=== PATIENT | female | born 1980 | race Caucasian/White ===

== ENCOUNTER 2018-01-22 12:26 | Inpatient (IN) ==
[2018-01-22 13:00] LABS: Bilirubin,Urine Negative (Negative); Blood,Urine Trace (Negative); Clarity,Urine Turbid (Clear); Color,Urine Yellow (Yellow); Glucose,Urine (UA) Normal (Normal); Ketones,Urine Negative (Negative); Leukocyte Esterase,Urine Moderate (Negative); Nitrite,Urine Negative (Negative); PH,Urine 6.5 pH Units (5.0-8.0); Protein,Urine 30 mg/dL (Neg-Trace); Specific Gravity,Urine 1.021 (1.010-1.025); Urobilinogen,Urine Normal (Normal)
--- NOTE | 2018-01-22 13:05 | Emergency Department Note ---
Disposition Clinical Impression: Hypokalemia, Hyponatremia, DIAZ (acute kidney injury) Disposition: Admitted As Inpatient Condition: Fair General Adult HPI - General Chief complaint: ED General Medical Stated complaint: It's my Kidneys? Time Seen by Provider: 01/22/18 12:59 - History of Present Illness Pain Scale: 0 - Related Data Home Medications Medication Instructions Recorded Confirmed Mv,Fe,Min/Lutein [A Thru Z Select 1 tab PO DAILY 01/22/18 01/22/18 Women's Tablet] Potassium Chloride [K-Tab ER] 20 meq PO DAILY 01/22/18 01/22/18 Sertraline [Zoloft] 50 mg PO DAILY 01/22/18 01/22/18 hydrOXYzine HCl [Hydroxyzine HCl] 25 - 50 mg PO HS 01/22/18 01/22/18 hydroCHLOROthiazide 25 mg PO DAILY 01/22/18 01/22/18 [Hydrochlorothiazide] Previous Rx's Medication Instructions Recorded RX: Metoprolol [Lopressor] 25 mg PO BID #60 tablet 06/14/15 RX: Cholecalciferol (D-3) [Vitamin 5,000 unit PO DAILY tablet 08/05/15 D] RX: OXcarbazepine [Trileptal] 600 mg PO BID tablet 08/05/15 RX: Zonisamide [Zonegran] 100 mg PO BID capsule 08/05/15 Allergies Allergy/AdvReac Type Severity Reaction Status Date / Time No Known Allergies Allergy Verified 01/22/18 12:44 Past Medical History - Past Medical History Medical history: Reports: hypertension, seizures, other Surgical history: Reports: other Psychiatric history: Reports: anxiety, depression, previous psychiatric hospitalization - Social History Smoking Status: Current every day smoker Smokeless Tobacco Status: No Alcohol use: Reports: none Drug use: Reports: none Course Vital Signs Temperature 97.8 F 01/22/18 12:41 Pulse Rate 84 01/22/18 12:41 Respiratory Rate 16 01/22/18 12:41 Blood Pressure 153/114 01/22/18 12:41 O2 Sat by Pulse Oximetry 97 01/22/18 12:41 Temperature 97.8 F 01/22/18 13:03 Pulse Rate 70 01/22/18 16:57 Respiratory Rate 16 01/22/18 16:57 Blood Pressure 137/101 01/22/18 16:57 O2 Sat by Pulse Oximetry 97 10/27/18 16:57 Oxygen Delivery Oxygen Delivery Room Air Medical Decision Making - Lab Data Result diagrams: 01/22/18 13:20 01/22/18 13:20 Lab Results 01/22/18 01/22/18 01/22/18 Range/Units 12:37 12:37 13:20 WBC 9.7 (4.3-11.1) K/mcL RBC 4.96 (3.82-4.97) M/mcL Hgb 16.0 H (11.5-15.4) g/dL Hct 42.0 (35.3-44.9) % MCV 84.7 (83.0-100.0) fL MCH 32.3 (28.0-33.3) pg MCHC 38.1 H (31.6-35.5) g/dL RDW 11.6 (11.5-14.5) % Plt Count 283 (140-400) K/mcL MPV 10.3 (9.4-12.4) fL Immature Gran % 0.5 (0-4) % Seg Neutrophils % 66.4 % Lymphocytes % 19.5 % Monocytes % 11.8 % Eosinophils % 1.3 % Basophils % 0.5 % Neutrophils # 6.4 (1.6-8.9) K/mcL Lymphocytes # 1.9 (0.6-4.6) K/mcL Monocytes # 1.1 (0.0-1.3) K/mcL Eosinophils # 0.1 (0.0-0.6) K/mcL Basophils # 0.1 (0.0-0.2) K/mcL Sodium (136-145) mEq/L Potassium (3.5-5.1) mEq/L Chloride (98-107) mEq/L Carbon Dioxide (23-29) mEq/L BUN (6-20) mg/dL Creatinine (0.60-1.20) mg/dL Est GFR ( Amer) (> 60) Est GFR (Non-Af Amer) (> 60) BUN/Creatinine Ratio (6-26) Glucose (70-105) mg/dL Calculated Osmolality (280-300) Calcium (8.6-10.3) mg/dL Magnesium (1.6-2.6) mg/dL Total Bilirubin (0.3-1.0) mg/dL Direct Bilirubin (0.0-0.2) mg/dL Indirect Bilirubin (0.0-1.2) mg/dL AST (13-39) Units/L ALT (7-52) Units/L Alkaline Phosphatase (34-104) Units/L Serum Total Protein (6.4-8.9) g/dL Albumin (3.5-5.7) g/dL Globulin (2.4-3.5) g/dL Albumin/Globulin Ratio (1.1-2.2) TSH (0.340-5.600) mcIU/mL Urine Color Yellow (Yellow) Urine Clarity Turbid A (Clear) Urine pH 6.5 (5.0-8.0) pH Units Ur Specific [place] 1.021 (1.010-1.025) Urine Protein 30 H (Neg-Trace) mg/dL Urine Glucose (UA) Normal (Normal) mg/dL Urine Ketones Negative (Negative) mg/dL Urine Blood Trace H (Negative) Urine Nitrite Negative (Negative) Urine Bilirubin Negative (Negative) Urine Urobilinogen Normal (Normal) mg/dL Ur Leukocyte Esterase Moderate H (Negative) Urine Microscopic RBC 0-3 (0-3) per hpf Urine Microscopic WBC 0-3 (0-3) per hpf Ur Squamous Epith Cells Many H (None-Few) per lpf Urine Bacteria Moderate H (None-Few) per hpf Ur Culture Indicated? NO. A (NO) Urine Test Negative (Negative) Specimen Rejected 01/22/18 01/22/18 01/22/18 Range/Units 13:20 14:39 15:02 WBC (4.3-11.1) K/mcL RBC (3.82-4.97) M/mcL Hgb (11.5-15.4) g/dL Hct (35.3-44.9) % MCV (83.0-100.0) fL MCH (28.0-33.3) pg MCHC (31.6-35.5) g/dL RDW (11.5-14.5) % Plt Count (140-400) K/mcL MPV (9.4-12.4) fL Immature Gran % (0-4) % Seg Neutrophils % % Lymphocytes % % Monocytes % % Eosinophils % % Basophils % % Neutrophils # (1.6-8.9) K/mcL Lymphocytes # (0.6-4.6) K/mcL Monocytes # (0.0-1.3) K/mcL Eosinophils # (0.0-0.6) K/mcL Basophils # (0.0-0.2) K/mcL Sodium 123 L (136-145) mEq/L Potassium 1.8 L* (3.5-5.1) mEq/L Chloride 80 L (98-107) mEq/L Carbon Dioxide 32 H (23-29) mEq/L BUN 37 H (6-20) mg/dL Creatinine 2.62 H (0.60-1.20) mg/dL Est GFR ( Amer) 25 L (> 60) Est GFR (Non-Af Amer) 21 L (> 60) BUN/Creatinine Ratio 14 (6-26) Glucose 120 H (70-105) mg/dL Calculated Osmolality 266 L (280-300) Calcium 9.6 (8.6-10.3) mg/dL Magnesium 2.6 (1.6-2.6) mg/dL Total Bilirubin 0.5 (0.3-1.0) mg/dL Direct Bilirubin 0.1 (0.0-0.2) mg/dL Indirect Bilirubin 0.4 (0.0-1.2) mg/dL AST 31 (13-39) Units/L ALT 17 (7-52) Units/L Alkaline Phosphatase 179 H (34-104) Units/L Serum Total Protein 8.2 (6.4-8.9) g/dL Albumin 4.4 (3.5-5.7) g/dL Globulin 3.8 H (2.4-3.5) g/dL Albumin/Globulin Ratio 1.2 (1.1-2.2) TSH 1.379 (0.340-5.600) mcIU/mL Urine Color (Yellow) Urine Clarity (Clear) Urine pH (5.0-8.0) pH Units Ur Specific [place] (1.010-1.025) Urine Protein (Neg-Trace) mg/dL Urine Glucose (UA) (Normal) mg/dL Urine Ketones (Negative) mg/dL Urine Blood (Negative) Urine Nitrite (Negative) Urine Bilirubin (Negative) Urine Urobilinogen (Normal) mg/dL Ur Leukocyte Esterase (Negative) Urine Microscopic RBC (0-3) per hpf Urine Microscopic WBC (0-3) per hpf Ur Squamous Epith Cells (None-Few) per lpf Urine Bacteria (None-Few) per hpf Ur Culture Indicated? (NO) Urine Test (Negative) Specimen Rejected Hemolyzed Critical Care Time Critical Care Time: Yes Total Critical Care Time: 30 Attestation: The high probability of a clinically significant, sudden or life threatening deterioration of the [] system(s) required my full and direct attention, intervention and personal management. The aggregate critical care time was [] minutes. This time is in addition to time spent performing reported procedures but includes the following: [] Data Review and interpretation [] Patient assessment and monitoring of vital signs [] Documentation [] Medication orders and management Attestation Statement - Attestation Attestation: I examined this patient and my medical decision-making was reviewed with the Resident Physician. I agree with the documented findings, disposition and treatment plan as described except to the extent set forth below. [id number] time provided Patient arrives after having outpatient labs that showed a creatinine greater than 3 with a GFR of 18. These laboratory findings are new. I did review the outpatient laboratory values. She has recently Bactrim. Patient appears in no acute distress
--- NOTE | 2018-01-22 13:13 | Emergency Department Note ---
Disposition Clinical Impression: Hypokalemia, Hyponatremia, DIAZ (acute kidney injury) Disposition: Admitted As Inpatient Condition: Fair Referrals: NONE,PCP [Primary Care Provider] - Forms: ED Satisfaction Letter, Work/School Release Time of Disposition: 15:19 General Adult HPI - General Chief complaint: ED General Medical Stated complaint: It's my Kidneys? Time Seen by Provider: 01/22/18 12:59 Source: patient, family Limitations: no limitations Nursing Notes Reviewed: Yes Vital Signs Reviewed: Yes - History of Present Illness HPI Narrative: Patient is a 37-year-old female that presents emergency department for worsening of her renal function. Family and patient states that over the past few weeks her renal function is significantly been decreasing and now she has a GFR of 18. Family states that she has recently completed a course of Lasix due to swelling in her legs and this been taking Bactrim for cellulitis. Denies any previous kidney issues. Patient states that she is still making urine. Family states that she has not been eating or drinking well lately and has lost approximately 20 pounds over the past 2 weeks. Patient also reports that she has felt somewhat dizzy over this time. As well. Pain Scale: 0 - Related Data Home Medications Medication Instructions Recorded Confirmed Mv,Fe,Min/Lutein [A Thru Z Select 1 tab PO DAILY 01/22/18 01/22/18 Women's Tablet] Potassium Chloride [K-Tab ER] 20 meq PO DAILY 01/22/18 01/22/18 Sertraline [Zoloft] 50 mg PO DAILY 01/22/18 01/22/18 hydrOXYzine HCl [Hydroxyzine HCl] 25 - 50 mg PO HS 01/22/18 01/22/18 hydroCHLOROthiazide 25 mg PO DAILY 01/22/18 01/22/18 [Hydrochlorothiazide] Previous Rx's Medication Instructions Recorded Metoprolol [Lopressor] 25 mg PO BID #60 tablet 06/14/15 Cholecalciferol (D-3) [Vitamin D] 5,000 unit PO DAILY tablet 08/05/15 OXcarbazepine [Trileptal] 600 mg PO BID tablet 08/05/15 Zonisamide [Zonegran] 100 mg PO BID capsule 08/05/15 Allergies Allergy/AdvReac Type Severity Reaction Status Date / Time No Known Allergies Allergy Verified 01/22/18 12:44 All systems ED: reviewed and negative except as stated. Constitutional: Denies: fever Cardiovascular: Denies: chest pain Respiratory: Reports: dyspnea Gastrointestinal: Reports: abdominal pain Genitourinary: Denies: urgency, dysuria, frequency, hematuria Past Medical History - Past Medical History Medical history: Reports: hypertension, seizures, other Surgical history: Reports: other Psychiatric history: Reports: anxiety, depression, previous psychiatric hospitalization - Social History Smoking Status: Current every day smoker Smokeless Tobacco Status: No Alcohol use: Reports: none Drug use: Reports: none Physical Exam - General Limitations: no limitations General appearance: alert, in no apparent distress - Head Head exam: atraumatic, normocephalic - Eye Eye exam: Present: normal appearance, EOMI - Neck Neck exam: Present: normal inspection, full ROM, trachea midline - Respiratory Respiratory exam: Present: normal lung sounds bilaterally. Absent: respiratory distress, wheezes - Cardiovascular Cardiovascular exam: Present: regular rate, normal rhythm, normal heart sounds, +S1, +S2 - Abdominal Exam Abdominal exam: Present: soft, tenderness, normal bowel sounds Abdominal tenderness: Present: diffuse, mild - Neurological Exam Neurological exam: Present: alert, oriented X3 - Psychiatric Psychiatric exam: Present: normal affect, normal mood - Skin Skin exam: Present: warm, dry, intact Course Vital Signs Temperature 97.8 F 01/22/18 12:41 Pulse Rate 84 01/22/18 12:41 Respiratory Rate 16 01/22/18 12:41 Blood Pressure 153/114 01/22/18 12:41 O2 Sat by Pulse Oximetry 97 01/22/18 12:41 Temperature 97.8 F 01/22/18 13:03 Pulse Rate 75 01/22/18 13:03 Respiratory Rate 16 01/22/18 13:03 Blood Pressure 172/117 01/22/18 13:03 O2 Sat by Pulse Oximetry 97 01/22/18 13:03 Oxygen Delivery Oxygen Delivery Room Air Medical Decision Making - [facility] Narrative Medical decision making narrative: Due the patient presents emergency department with concern for kidney function and possible left-sided abdomen was without basic laboratory testing EKG. Patient's potassium was critically low at 1.8. Patient was given 40 of IV p otassium in addition to oral potassium. Patient's sodium was 123. Patient did have decreased kidney function with a creatinine of 2.6 and a GFR of 21. This is mildly improved from her outpatient laboratory testing that they brought with. Patient will need to be admitted to the hospital for further evaluation and management of her left side abnormalities and her decreasing kidney function. Nephrology was consult at and a consult was placed in [facility]. They will see her in consult. The patient will be admitted to the medical service. Patient will likely need admission to the 2 N. stepdown unit. We spoke with and she is accepted the patient to their service. Patient be admitted to the hospital this time for further evaluation and management. - Medical Records Medical records reviewed: Yes I reviewed the patient's medical records. - Lab Data Lab results reviewed: Yes I reviewed the patient's lab results. Result diagrams: 01/22/18 13:20 Lab Results 01/22/18 01/22/18 01/22/18 Range/Units 12:37 12:37 13:20 Sodium 123 L (136-145) mEq/L Potassium 1.8 L* (3.5-5.1) mEq/L Chloride 80 L (98-107) mEq/L Carbon Dioxide 32 H (23-29) mEq/L BUN 37 H (6-20) mg/dL Creatinine 2.62 H (0.60-1.20) mg/dL Est GFR ( Amer) 25 L (> 60) Est GFR (Non-Af Amer) 21 L (> 60) BUN/Creatinine Ratio 14 (6-26) Glucose 120 H (70-105) mg/dL Calculated Osmolality 266 L (280-300) Calcium 9.6 (8.6-10.3) mg/dL Magnesium 2.6 (1.6-2.6) mg/dL Total Bilirubin 0.5 (0.3-1.0) mg/dL Direct Bilirubin 0.1 (0.0-0.2) mg/dL Indirect Bilirubin 0.4 (0.0-1.2) mg/dL AST 31 (13-39) Units/L ALT 17 (7-52) Units/L Alkaline Phosphatase 179 H (34-104) Units/L Serum Total Protein 8.2 (6.4-8.9) g/dL Albumin 4.4 (3.5-5.7) g/dL Globulin 3.8 H (2.4-3.5) g/dL Albumin/Globulin Ratio 1.2 (1.1-2.2) Urine Color Yellow (Yellow) Urine Clarity Turbid A (Clear) Urine pH 6.5 (5.0-8.0) pH Units Ur Specific [place] 1.021 (1.010-1.025) Urine Protein 30 H (Neg-Trace) mg/dL Urine Glucose (UA) Normal (Normal) mg/dL Urine Ketones Negative (Negative) mg/dL Urine Blood Trace H (Negative) Urine Nitrite Negative (Negative) Urine Bilirubin Negative (Negative) Urine Urobilinogen Normal (Normal) mg/dL Ur Leukocyte Esterase Moderate H (Negative) Urine Microscopic RBC 0-3 (0-3) per hpf Urine Microscopic WBC 0-3 (0-3) per hpf Ur Squamous Epith Cells Many H (None-Few) per lpf Urine Bacteria Moderate H (None-Few) per hpf Ur Culture Indicated? NO. A (NO) Urine Test Negative (Negative) - EKG Data EKG #1 EKG attestation: Yes I reviewed and interpreted this EKG. EKG results narrative: EKG shows a sinus rhythm at a rate of 74 bpm, IN interval of 160, curious duration of 161, QTC of 514 with a normal axis. No evidence of STEMI but there are depressions in inferior lateral leads. There is no previous EKG for comparison.
[2018-01-22 13:20] LABS: Bacteria,Urine Moderate per hpf (None-Few); RBC,Urine 0-3 per hpf (0-3); Squamous Epithelial Cell,Urine Many per lpf (None-Few); WBC,Urine 0-3 per hpf (0-3)
[2018-01-22] MEDS ORDERED: Potassium Chloride Elixir 20 MEQ/15 ML UDC PO ONE ×2 (13:30→14:26)
[2018-01-22 13:50] LABS: Red Cell Distribution Width 11.6 % (11.5-14.5)
[2018-01-22 14:15] LABS: Albumin 4.4 g/dL (3.5-5.7); Albumin/Globulin Ratio 1.2 (1.1-2.2); Bilirubin,Direct 0.1 mg/dL (0.0-0.2); Bilirubin,Indirect 0.4 mg/dL (0.0-1.2); Bilirubin,Total 0.5 mg/dL (0.3-1.0); Calcium 9.6 mg/dL (8.6-10.3); Globulin 3.8 g/dL (2.4-3.5); Magnesium 2.6 mg/dL (1.6-2.6); Potassium 1.8 mEq/L (3.5-5.1); Total Protein 8.2 g/dL (6.4-8.9)
[2018-01-22] MEDS ORDERED: Naloxone 0.4 MG/ML INJ IVP PRN (14:34)
[2018-01-22] MEDS ORDERED: *HR* HYDROcodone/Acet 5/325 mg TABLET PO PRN (14:34)
[2018-01-22] MEDS ORDERED: *HR* OxyCODONE Immed Rel 5 MG TABLET PO PRN (14:34)
[2018-01-22] MEDS ORDERED: *HR* Labetalol 100 MG/20 ML MDV IVP PRN (14:45)
[2018-01-22 14:47] LABS: Basophils % 0.5 %; Immature Granulocytes % 0.5 % (0-4)
[2018-01-22 14:48] LABS: Basophils # 0.1 K/mcL (0.0-0.2); Eosinophils # 0.1 K/mcL (0.0-0.6); Eosinophils % 1.3 %; Lymphocytes # 1.9 K/mcL (0.6-4.6); Lymphocytes % 19.5 %; Mean Corpuscular Hemoglobin 32.3 pg (28.0-33.3); Mean Corpuscular Volume 84.7 fL (83.0-100.0); Mean Platelet Volume 10.3 fL (9.4-12.4); Monocytes # 1.1 K/mcL (0.0-1.3); Monocytes % 11.8 %; Neutrophils # 6.4 K/mcL (1.6-8.9); Platelet Count 283 K/mcL (140-400); Red Blood Count 4.96 M/mcL (3.82-4.97); Segmented Neutrophils % 66.4 %
[2018-01-22 15:14] LABS: Mean Corpuscular HGB Conc 38.1 g/dL (31.6-35.5)
[2018-01-22] MEDS ORDERED: Ipratropium/Albuterol Neb 3 ML IH PRN (15:33)
[2018-01-22] MEDS: 0.9 % Sodium Chloride w KCl 40 MEQ/1,000 ML MLS IVC SCH (15:39)
--- NOTE | 2018-01-22 15:45 | Internal Med History&Physical ---
Date of Encounter: 01/22/18 Time of Encounter: 15:10 Internal Medicine - H&P: HPI Chief complaint: dehydrated Admitted From: Home History of present illness: Ms. White is a 37 year old female with history of cerebral palsy with left- sided weakness/contracture, epilepsy, depression, hypertension, presented to the ED with due to worsening kidney function. Patient states that her renal function has steadily been declining for the last 2-3 weeks with the latest GFR around 18. Pt had been on lasix for the last few weeks for LE swelling and was also taking PO Bactrim for 3-4 days for presumed UTI. She was also taking another antibiotics about a month ago when she was diagnosed with LE cellulitis at the outside facility. In addition, she is on HCTZ for HTN and takes Zoloft, Trileptal for depression and epilepsy respectively. States that she had similar episode in 05/2017 when her Cr was noted to be around 1.3 -> subsequently improved to normal value. Family states that her appetite has been poor lately and was not eating or drinking much. No family history of kidney disease of kidney stones. Other than chronic cough that she has had as she smokes a pack da day for several years, patient denies chest pain, shortness of breath, sputum production, hemoptysis, or fever/chills. No GI/ symptoms. In the ED, she was afebrile and hemodynamically stable. Labwork again demonstrated Cr elevation of 2.62 with potassium 1.8 and Na 123. Cl was also low at 80. Mag normal. UA showed moderate LE but also contained many squamous epithelial cells. EKG showed ST depression in inferolateral leads as well as what appears to be U waves in V3-5. Patient was given 120meq of Potassium and admitted for further mx. Past Med Surg Social Fam HX - Past Medical History Attestation: Yes The following information was validated with the patient. Medical history: hypertension, seizures, other Additional medical history: cerebral palsy Psychiatric history: anxiety, depression, previous psychiatric hospitalization - Past Surgical History Surgical History: other Additional surgical history: shunt and shunt replacement. leg surgery-tendons c ut so she could walk straight - Social History Smoking Status: Current every day smoker Smokeless Tobacco Status: No Alcohol use: none Drug use: none - Family History Mother Living Status: Still Living Hx Family Cardiac Disorders: No Hx Family Genitourinary Disorders: No Internal Medicine - H&P: Meds Metoprolol [Lopressor] 25 mg PO BID #60 tablet 06/14/15 [Rx] Cholecalciferol (D-3) [Vitamin D] 5,000 unit PO DAILY tablet 08/05/15 [Rx] OXcarbazepine [Trileptal] 600 mg PO BID tablet 08/05/15 [Rx] Zonisamide [Zonegran] 100 mg PO BID capsule 08/05/15 [Rx] Mv,Fe,Min/Lutein [A Thru Z Select Women's Tablet] 1 tab PO DAILY 01/22/18 [His tory] Potassium Chloride [K-Tab ER] 20 meq PO DAILY 01/22/18 [History] Sertraline [Zoloft] 50 mg PO DAILY 01/22/18 [History] hydrOXYzine HCl [Hydroxyzine HCl] 25 - 50 mg PO HS 01/22/18 [History] hydroCHLOROthiazide [Hydrochlorothiazide] 25 mg PO DAILY 01/22/18 [History] 3 Allergy/AdvReac Type Severity Reaction Status Date / Time No Known Allergies Allergy Verified 01/22/18 12:44 All Systems PM: A 10-system review of systems was performed and is negative for pertinent findings except as documented above in the HPI. - Constitutional Vitals: Temp Pulse Resp BP Pulse Ox 97.8 F 71 18 119/85 99 01/22/18 13:03 01/22/18 14:46 01/22/18 14:46 01/22/18 14:46 01/22/18 14:46 Exam: General: Alert and oriented, not in acute distress. HEENT:EOMI, pupils equal, round and reactive. Dry oral mucosa Cardiovascular:Normal S1 & S2, No JVD. Pulse regular. Lungs: scattered wheezes bilaterally, no rales Abdomen:Soft, non-tender, no rigidity. No palpable bladder or CVA tenderness Extremities: LUE contracture noted. L ankle in plantarflexion. Neurological: no focal deficits other than the contracture described as above Skin:Normal color, no rash, no lesions. Pulses:Carotid and radial pulses normal +2. Rest of the physical exam is non contributory Internal Med - H&P Results - Labs CBC & Chem 7: 01/22/18 13:20 01/22/18 13:20 Labs: Short CBC 10/27/18 Range/Units 13:20 WBC 9.7 (4.3-11.1) K/mcL Hgb 16.0 H (11.5-15.4) g/dL Hct 42.0 (35.3-44.9) % Plt Count 283 (140-400) K/mcL Neutrophils # 6.4 (1.6-8.9) K/mcL BMP 01/22/18 13:20 Sodium 123 L Potassium 1.8 L* Chloride 80 L Carbon Dioxide 32 H BUN 37 H Creatinine 2.62 H Glucose 120 H Calcium 9.6 Liver Function 01/22/18 Range/Units 13:20 Total Bilirubin 0.5 (0.3-1.0) mg/dL Direct Bilirubin 0.1 (0.0-0.2) mg/dL AST 31 (13-39) Units/L ALT 17 (7-52) Units/L Alkaline Phosphatase 179 H (34-104) Units/L Albumin 4.4 (3.5-5.7) g/dL Urine 01/22/18 Range/Units 12:37 Urine Color Yellow (Yellow) Urine Clarity Turbid A (Clear) Urine pH 6.5 (5.0-8.0) pH Units Ur Specific [place] 1.021 (1.010-1.025) Urine Protein 30 H (Neg-Trace) mg/dL Urine Glucose (UA) Normal (Normal) mg/dL - Assessment and plan (1) DIAZ (acute kidney injury) Current Visit: Yes Status: Acute Assessment and plan: likely pre-renal with poor oral intake and ongoing use of Lasix/HCTZ also complicated by recent use of bactrim for presumed UTI, no clear evidence of UTI on our urinalysis she was also taking an unknown abx about a month ago for bilateral LE cellulitis -> upon reviewing the picture of "redness" around her ankle, they almost resemble the vasculitic lesions. Currently free of lesions IVF, hold off on lasix and HCTZ monitor urine output urine eosinophils, tox screen resend urinalysis if it does not improve with IVF, would consider vasculitic workup avoid nephrotoxins, anti-epileptic meds adjusted nephrology consult (2) Hypokalemia Current Visit: Yes Status: Acute Assessment and plan: K 1.8 with EKG changes as above. Mg normal given 120meq in the ED telemetry repeat BMP later today electrolyte replacement protocol (3) Hyponatremia Current Visit: Yes Status: Acute Assessment and plan: likely hypovolemic, also may be attributed to SIADH with the use of Zoloft and Trileptal her baseline appears to be low 130s check TSH Trileptal dosages adjusted renally IVF as above (4) Epilepsy Current Visit: Yes Status: Chronic Assessment and plan: On Trileptal and Zonisamide at home decrease trileptal dosage in half given ARF Zonisamide usage is not recommended for CrCl < 50, will hold off for now Qualifiers: Epilepsy type: unspecified Intractability: not intractable Status epilepticus: without status epilepticus Qualified Code(s): G40.909 - Epilepsy, unspecified, not intractable, without status epilepticus (5) Hypertension Current Visit: Yes Status: Chronic Assessment and plan: on metoprolol and HCTZ at home, hold PRN IV labetalol will consider switching to coreg Qualifiers: Hypertension type: essential hypertension Qualified Code(s): I10 - Essential (primary) hypertension (6) DVT prophylaxis Current Visit: Yes Status: Acute Assessment and plan: SQ heparin - Time Spent With Patient Total time spent is greater than 50% in coordination of care (as documented) at patient's floor/unit and/or counseling patient: 36 minutes
[2018-01-22 17:21] LABS: Calcium 8.7 mg/dL (8.6-10.3); Potassium 3.1 mEq/L (3.5-5.1)
[2018-01-22] MEDS: OXcarbazepine 150 MG TABLET PO SCH (22:25)
[2018-01-22] MEDS: *HR* Heparin 5,000 UNIT/ML VIAL SQ SCH (22:26)
[2018-01-22] MEDS: *HR* Labetalol 20 MG/4 ML SYRINGE IVP PRN (22:56)
[2018-01-23 00:14] LABS: VBG Ionized Calcium 0.96 mmol/L (1.15-1.35)
[2018-01-23 00:35] LABS: Calcium 8.3 mg/dL (8.6-10.3); Magnesium 2.3 mg/dL (1.6-2.6); Potassium 2.5 mEq/L (3.5-5.1)
[2018-01-23] MEDS: 0.9 % Sodium Chloride w KCl 40 MEQ/1,000 ML MLS IVC SCH ×4 (00:43→22:59)
[2018-01-23 00:59] LABS: Phosphorous 1.6 mg/dL (2.7-4.5)
[2018-01-23] MEDS: Potassium Phosphate 44 MEQ in 0.9 % Sodium Chloride 250 ML IVPB PRN (02:14)
[2018-01-23 02:47] LABS: Bilirubin,Urine Negative (Negative); Blood,Urine Negative (Negative); Clarity,Urine Clear (Clear); Color,Urine Yellow (Yellow); Glucose,Urine (UA) Normal (Normal); Ketones,Urine Negative (Negative); Leukocyte Esterase,Urine Negative (Negative); Nitrite,Urine Negative (Negative); Protein,Urine Negative (Neg-Trace); Specific Gravity,Urine 1.007 (1.010-1.025); Urobilinogen,Urine Normal (Normal)
[2018-01-23 02:55] LABS: Amphetamine Screen,Urine Negative ng/mL (Cutoff=1000); Barbiturate Screen,Urine Negative ng/mL (Cutoff=200); Benzodiazepines Screen,Urine Negative ng/mL (Cutoff=200); Cannabinoid Screen,Urine Negative ng/mL (Cutoff = 50); Cocaine Screen,Urine Negative ng/mL (Cutoff= 300); Opiate Screen,Urine Negative ng/mL (Cutoff=300); Phencyclidine Screen,Urine Negative ng/mL (Cutoff=25)
[2018-01-23] MEDS: Acetaminophen 325 MG TABLET PO PRN (03:43)
[2018-01-23] MEDS: *HR* Heparin 5,000 UNIT/ML VIAL SQ SCH ×2 (06:42→17:35)
[2018-01-23 08:18] LABS: VBG Ionized Calcium 1.01 mmol/L (1.15-1.35)
[2018-01-23 08:27] LABS: Magnesium 2.2 mg/dL (1.6-2.6); Phosphorous 4.4 mg/dL (2.7-4.5)
[2018-01-23 08:42] LABS: Calcium 8.3 mg/dL (8.6-10.3); Potassium 3.3 mEq/L (3.5-5.1)
[2018-01-23] MEDS: Cholecalciferol (D-3) 1,000 UNIT TABLET PO SCH (09:03)
[2018-01-23] MEDS: OXcarbazepine 150 MG TABLET PO SCH ×2 (09:03→21:06)
--- NOTE | 2018-01-23 09:50 | Internal Med Progress Note ---
Hospitalist Progress Note - Encounter Date of Encounter: 01/23/18 Time of Encounter: 08:15 - Subjective Interval History: No acute events overnight, overnight trend of electrolytes noted. Reports increasing urination without dysuria. Denies any fever/chills, nausea/vomiting, diarrhea. - Exam Vitals: Temp Pulse Resp BP Pulse Ox 97.5 F L 78 18 144/98 100 01/23/18 08:23 01/23/18 08:23 01/23/18 08:23 01/23/18 08:23 01/23/18 08:23 Exam: General: Alert and oriented, not in acute distress. Cardiovascular:Normal S1 & S2, No JVD. Pulse regular. Lungs: clear to auscultation Abdomen:Soft, non-tender, no rigidity. No palpable bladder or CVA tenderness Extremities: LUE contracture noted. L ankle in plantarflexion. Neurological: no focal deficits other than the contracture described as above - Assessment and Plan (1) DIAZ (acute kidney injury) Current Visit: Yes Status: Acute Assessment and Plan: likely pre-renal with poor oral intake and ongoing use of Lasix/HCTZ also complicated by recent use of bactrim for presumed UTI, no clear evidence of UTI on our urinalysis she was also taking an unknown abx about a month ago for bilateral LE cellulitis -> upon reviewing the picture of "redness" around her ankle, they almost resemble the vasculitic lesions. Currently free of lesions urine eosinophils and tox -ve repeat urinalysis was negative for UTI Improving with IVF, continue hold off on lasix and HCTZ avoid nephrotoxins, anti-epileptic meds adjusted -> will increase Trileptal back to home dose, consider restarting zonisamide tomorrow if GFR > 50 nephrology consult (2) Hypokalemia Current Visit: Yes Status: Acute Assessment and Plan: K 1.8 with ?U wave on EKG. 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 with the use of Zoloft and Trileptal TSH normal her baseline appears to be low 130s improving with IVF, continue (4) Epilepsy Current Visit: Yes Status: Chronic Assessment and Plan: On Trileptal and Zonisamide at home started on lower dose of trileptal yesterday given ARF -> will resume at full dose with resolving DIAZ Zonisamide usage is not recommended for CrCl < 50, will hold off for now (5) Hypertension Current Visit: Yes Status: Chronic Assessment and Plan: on metoprolol and HCTZ at home, hold start coreg instead PRN IV labetalol (6) DVT prophylaxis Current Visit: Yes Status: Acute Assessment and Plan: SQ heparin - Time Spent with Patient Total time spent is greater than 50% in coordination of care (as documented) at patient's floor/unit and/or counseling patient: Plan of Care Discussed with: family Internal Medicine: Result - Labs CBC & Chem 7: 01/22/18 13:20 01/23/18 07:43 Labs: Short CBC 01/22/18 Range/Units 13:20 WBC 9.7 (4.3-11.1) K/mcL Hgb 16.0 H (11.5-15.4) g/dL Hct 42.0 (35.3-44.9) % Plt Count 283 (140-400) K/mcL Neutrophils # 6.4 (1.6-8.9) K/mcL BMP 01/22/18 01/22/18 01/22/18 13:20 16:38 23:57 Sodium 123 L 124 L 127 L Potassium 1.8 L* 3.1 L D 2.5 L* Chloride 80 L 88 L 93 L Carbon Dioxide 32 H 27 24 BUN 37 H 35 H 32 H Creatinine 2.62 H 2.39 H 1.89 H Glucose 120 H 144 H 138 H Calcium 9.6 8.7 8.3 L 01/23/18 07:43 Sodium 128 L Potassium 3.3 L D Chloride 96 L Carbon Dioxide 22 L BUN 26 H Creatinine 1.46 H Glucose 94 Calcium 8.3 L Liver Function 01/22/18 Range/Units 13:20 Total Bilirubin 0.5 (0.3-1.0) mg/dL Direct Bilirubin 0.1 (0.0-0.2) mg/dL AST 31 (13-39) Units/L ALT 17 (7-52) Units/L Alkaline Phosphatase 179 H (34-104) Units/L Albumin 4.4 (3.5-5.7) g/dL Urine 01/22/18 01/23/18 Range/Units 12:37 02:35 Urine Color Yellow Yellow (Yellow) Urine Clarity Turbid A Clear (Clear) Urine pH 6.5 7.0 (5.0-8.0) pH Units Ur Specific [place] 1.021 1.007 L (1.010-1.025) Urine Protein 30 H Negative (Neg-Trace) mg/dL Urine Glucose (UA) Normal Normal (Normal) mg/dL - Impressions Impressions Chest X-Ray 01/22/18 15:33 IMPRESSION: No radiographic evidence of acute cardiopulmonary disease. D/ / Nigel Maria / Nigel Maria Interpreting Provider: Nigel Maria Consult Discharge Plan - Plan Referrals: NONE,PCP [Primary Care Provider] - (4) Epilepsy Qualifiers: Epilepsy type: unspecified Intractability: not intractable Status epilepticus: without status epilepticus Qualified Code(s): G40.909 - Epilepsy, unspecified, not intractable, without status epilepticus (5) Hypertension Qualifiers: Hypertension type: essential hypertension Qualified Code(s): I10 - Essential (primary) hypertension
[2018-01-23 11:15] LABS: Calcium 8.2 mg/dL (8.6-10.3); Potassium 2.8 mEq/L (3.5-5.1)
--- NOTE | 2018-01-23 12:29 | Nephrology Consult Note ---
Date of Encounter: 01/23/18 Time of Encounter: 10:30 Assessment and Plan (1) DIAZ (acute kidney injury) Current Visit: Yes Status: Resolved DIAZ with probable prerenal etiology while taking nephrotoxic meds including OTC NSAIDs for her chronic HAs, HCTZ, Furosemide and Bactrim. Continue IVF and 'lyte replacement. Continue the slow PNa correction rate of 6- 8mEq / 24hr. No need for HD. She was just hospitalized for the same about 2 weeks ago at [facility] - I recommend requesting the records. Though pre-renal and nephrotoxicity still remain the highest in the differential diagnosis, the recent b/l LE rash (no longer present but the family shared photos -- it was not cellulitis but a blotchy appearance that sometimes could be seen with MPGN, Cryoglobulinemia, Systemic Lupus, etc). I'll recommend checking serologies to be thorough. I counseled her for >50% of the 40 min encounter to stop taking OTC NSAIDs, to start consuming more water (she "never" drinks water, just Mt Dew and Coffee), and other lifestyle modifications. Will follow with you. Thank you for consulting the [facility] group. My colleague Dr. Bundy, will be on-call tomorrow. (2) Hypokalemia Current Visit: Yes Status: Acute (3) Hyponatremia Current Visit: Yes Status: Acute (4) Hypertension Current Visit: Yes Status: Chronic Qualifiers: Hypertension type: essential hypertension Qualified Code(s): I10 - Essential (primary) hypertension History of Present Illness - Reason for Consult Consult date: 01/22/18 Acute Kidney Injury, hyponatremia, hypokalemia Requesting physician: Price Osborne - Chief Complaint DIAZ with Hyponatremia and Hypokalemia - History of Present Illness Sarai White is a very pleasant WF with a pmh of cerebral palsy, HAs on NSAIDs and etc who presented with DIAZ and electrolyte abnormalities, for which Nephrology was consulted. She was able to speak and provide some history but her friends/family who were present provided most of the history. She was recently hospitalized at [facility] for DIAZ that was attributed to dehydration and also later found to have a red rash on around her ankles (a picture on her smart phone was shown to me) and she was prescribed Bactrim and then also was placed on Lasix in addition to HCTZ. She denied difficulty urinating or diarrhea, but she has had diminished appetite recently. She completed the course of the bactrim and the red self-described rash is already gone. 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 No prior gout or renal stones. She did affirm using NSAIDs for HAs routinely. Past Med Surg Social Fam HX - Past Medical History Medical history: hypertension, seizures, other Additional medical history: cerebral palsy Psychiatric history: anxiety, depression, previous psychiatric hospitalization - Past Surgical History Surgical History: other Additional surgical history: brain shunt placed at age 12 and 15. surgery on left foot - Social History Smoking Status: Current every day smoker Packs per day: 1 Smokeless Tobacco Status: No Alcohol use: none Drug use: none - Family History Mother Living Status: Still Living Hx Family Cardiac Disorders: No Hx Family Genitourinary Disorders: No Medications and Allergies Metoprolol [Lopressor] 25 mg PO BID #60 tablet 06/14/15 [Rx] Cholecalciferol (D-3) [Vitamin D] 5,000 unit PO DAILY tablet 08/05/15 [Rx] OXcarbazepine [Trileptal] 600 mg PO BID tablet 08/05/15 [Rx] Zonisamide [Zonegran] 100 mg PO BID capsule 08/05/15 [Rx] Mv,Fe,Min/Lutein [A Thru Z [employer]'s Tablet] 1 tab PO DAILY 01/22/18 [History] Potassium Chloride [K-Tab ER] 20 meq PO DAILY 01/22/18 [History] Sertraline [Zoloft] 50 mg PO DAILY 01/22/18 [History] hydrOXYzine HCl [Hydroxyzine HCl] 25 - 50 mg PO HS 01/22/18 [History] hydroCHLOROthiazide [Hydrochlorothiazide] 25 mg PO DAILY 01/22/18 [History] Allergy/AdvReac Type Severity Reaction Status Date / Time No Known Allergies Allergy Verified 01/22/18 12:44 Review of Systems All Systems: reviewed and no additional remarkable complaints except as stated Exam - Vital Signs Vital signs: Initial Vital Signs Temp Pulse Resp BP Pulse Ox 97.8 F 84 16 153/114 97 01/22/18 12:41 01/22/18 12:41 01/22/18 12:41 01/22/18 12:41 01/22/18 12:41 Vital Signs - Last 8 Hours Temp Pulse Resp BP Pulse Ox 01/23/18 12:14 97.9 F 82 82 160/108 99 01/23/18 08:23 97.5 F L 78 18 144/98 100 Intake and Output 01/22/18 01/23/18 01/23/18 23:59 07:59 15:59 Intake Total 520 / 520 1410 / 1410 360 / 360 Balance 520 / 520 1410 / 1410 360 / 360 Intake: IV Fluids 300 / 300 1410 / 1410 KCl 40mEq in 0.9% Sodium 1000 / 1000 Chloride 40 meq In 1,000 ml @ 125 mls/hr IVC .Q8H VIVIANA Rx#: [id number] Calcium Gluconate 1,000 MG In 0 110 / 110 .9 % Sodium Chloride 100 ML @ 220 mls/hr IVPB Q6HR PRN Rx#: [id number] Potassium Chloride 10 mEq/100mL 300 / 300 300 / 300 10 meq In 100 ml @ 100 mls/hr IVPB Q1H PRN Rx#:[id number] Oral 220 / 220 360 / 360 Other: Meal Breakfast Percent of Meal Consumed 5% # Voids 1 Weight 73.1 kg 74.1 kg Patient Weight 01/23/18 23:59 Weight 74.1 kg - General Appearance General appearance: well-developed, well-nourished, appears started age EENT: ATNC, PERRL, mucous membranes dry Neck: supple Respiratory: clear Cardiology: no edema, regular rate, regular rhythm, normal S1, normal S2 Gastrointestinal: normoactive bowel sounds, no tenderness, no guarding, no organomegaly Integumentary: no rash (however, her family showed me a picture of her ankles with a bilateral blotchy appearing erythematous band for a few weeks ago. ), warm and dry Neurologic: alert and oriented x3 Musculoskeletal: deformities (left hemiparesis and LUE contractures) Psychiatric: mood/affect appropriate, cooperative Results - Lab Results 01/24/18 02:51 01/24/18 09:32 Most recent lab results Calcium 8.2 mg/dL (8.6-10.3) L 01/23/18 10:47 Phosphorus 4.4 mg/dL (2.7-4.5) 01/23/18 07:43 Magnesium 2.2 mg/dL (1.6-2.6) 01/23/18 07:43 I reviewed her labs, vitals, imaging, progress notes, med list. Consult Discharge Plan - Plan Referrals: Misa Westbrook CNP [Primary Care Provider] - (This office is a walkin only clinic, unable to make any follow up appointment)
[2018-01-23 14:19] LABS: Potassium 2.8 mEq/L (3.5-5.1)
[2018-01-23 16:43] LABS: Hepatitis B Surface Antigen Nonreactive (Nonreactive)
[2018-01-23 17:09] LABS: BUN/Creatinine Ratio 20 (6-26); Blood Urea Nitrogen 22 mg/dL (6-20); Calcium 7.9 mg/dL (8.6-10.3); Carbon Dioxide 24 mEq/L (23-29); Chloride 98 mEq/L (98-107); Glucose 112 mg/dL (70-105); Osmolality,Calculated 274 (280-300); Potassium 3.2 mEq/L (3.5-5.1); Sodium 130 mEq/L (136-145); eGFR For Non-African Americans 55 (> 60)
[2018-01-23 23:02] LABS: Bilirubin,Urine Negative (Negative); Blood,Urine Trace (Negative); Clarity,Urine Cloudy (Clear); Color,Urine Yellow (Yellow); Glucose,Urine (UA) Normal (Normal); Ketones,Urine Negative (Negative); Leukocyte Esterase,Urine Trace (Negative); Nitrite,Urine Negative (Negative); PH,Urine 6.5 pH Units (5.0-8.0); Protein,Urine Negative (Neg-Trace); Specific Gravity,Urine 1.015 (1.010-1.025); Urobilinogen,Urine Normal (Normal)
[2018-01-23 23:04] LABS: Bacteria,Urine Few per hpf (None-Few); Squamous Epithelial Cell,Urine Many per lpf (None-Few); WBC,Urine 0-3 per hpf (0-3)
[2018-01-23 23:21] LABS: Hyaline Casts,Urine Few per lpf (None-Few)
[2018-01-23 23:22] LABS: Mucus,Urine Few (Few); Yeast,Urine Moderate per hpf (None Seen)
[2018-01-24] MEDS: Acetaminophen 325 MG TABLET PO PRN (02:53)
[2018-01-24 03:11] LABS: Basophils # 0.1 K/mcL (0.0-0.2); Basophils % 0.8 %; Eosinophils # 0.2 K/mcL (0.0-0.6); Eosinophils % 3.4 %; Immature Granulocytes % 0.3 % (0-4); Lymphocytes # 2.8 K/mcL (0.6-4.6); Lymphocytes % 42.4 %; Mean Corpuscular HGB Conc 36.7 g/dL (31.6-35.5); Mean Corpuscular Hemoglobin 32.8 pg (28.0-33.3); Mean Corpuscular Volume 89.6 fL (83.0-100.0); Mean Platelet Volume 10.2 fL (9.4-12.4); Monocytes # 0.8 K/mcL (0.0-1.3); Monocytes % 11.6 %; Neutrophils # 2.7 K/mcL (1.6-8.9); Platelet Count 202 K/mcL (140-400); Red Blood Count 3.35 M/mcL (3.82-4.97); Red Cell Distribution Width 11.8 % (11.5-14.5); Segmented Neutrophils % 41.5 %
[2018-01-24 03:13] LABS: VBG Ionized Calcium 0.95 mmol/L (1.15-1.35)
[2018-01-24 03:21] LABS: Hepatitis A Antibody IgM Nonreactive (Nonreactive); Hepatitis B Core IgM Nonreactive (Nonreactive); Hepatitis C Virus Antibody Nonreactive (Nonreactive)
[2018-01-24 03:32] LABS: Albumin 3.1 g/dL (3.5-5.7); BUN/Creatinine Ratio 19 (6-26); Blood Urea Nitrogen 16 mg/dL (6-20); Calcium 7.9 mg/dL (8.6-10.3); Carbon Dioxide 23 mEq/L (23-29); Chloride 102 mEq/L (98-107); Glucose 85 mg/dL (70-105); Osmolality,Calculated 268 (280-300); Phosphorous 1.5 mg/dL (2.7-4.5); Potassium 3.3 mEq/L (3.5-5.1); Sodium 129 mEq/L (136-145); eGFR For Non-African Americans > 60 (> 60)
[2018-01-24] MEDS: Potassium Phosphate 44 MEQ in 0.9 % Sodium Chloride 250 ML IVPB PRN (04:46)
[2018-01-24] MEDS: *HR* Heparin 5,000 UNIT/ML VIAL SQ SCH ×2 (04:48→17:01)
[2018-01-24] MEDS: 0.9 % Sodium Chloride w KCl 40 MEQ/1,000 ML MLS IVC SCH ×2 (07:14→17:02)
[2018-01-24] MEDS: Cholecalciferol (D-3) 1,000 UNIT TABLET PO SCH (07:46)
[2018-01-24] MEDS: OXcarbazepine 150 MG TABLET PO SCH ×2 (07:47→20:55)
[2018-01-24 09:50] LABS: VBG Ionized Calcium 1.07 mmol/L (1.15-1.35)
--- NOTE | 2018-01-24 10:02 | Nephrology Progress Note ---
Addendum entered and electronically signed by Neel Bundy MD 01/24/18 23:11: I examined this patient and discussed the medical decision-making with JAGJIT Romero. I agree with the documented findings, disposition and treatment plan as described except to the extent set forth below. Original Note: Date of Encounter: 01/24/18 Time of Encounter: 09:54 - Assessment and Plan (1) DIAZ (acute kidney injury) Current Visit: Yes Status: Resolved DIAZ with probable prerenal etiology while taking nephrotoxic meds including OTC NSAIDs for her chronic HAs, HCTZ, Furosemide and Bactrim. Continue IVF and electrolyte replacement. Continue the slow Na correction rate of 6-8mEq / 24hr. No need for HD. Scr is 0.83 and GFR is 60. Continue renal protective strategy. (2) Hypokalemia Current Visit: Yes Status: Acute K is 3.3, continue with replacement. (3) Hyponatremia Current Visit: Yes Status: Acute Na is 129, stable. (4) Hypertension Current Visit: Yes Status: Chronic BP is elevated 150/115. Coreg increased, HR is greater than 70 for most of this stay. Qualifiers: Hypertension type: essential hypertension Qualified Code(s): I10 - Essential (primary) hypertension Subjective Principal diagnosis: abnormal renal function Interval history: Pt seen and examined, is overall feeling much better. Denies chest pain or shortness of breath. Denies nausea/vomiting/diarrhea. Spoke with mother at bedside and updated on POC. Objective - Vital Signs Vital signs: Vital Signs Temp Pulse Resp BP Pulse Ox 01/24/18 06:46 98.2 F 79 17 150/115 100 01/24/18 02:56 98.0 F 71 15 159/101 98 01/23/18 23:12 98 F 71 16 142/97 98 01/23/18 19:11 98.1 F 82 18 154/98 100 01/23/18 15:27 98.6 F 86 20 177/133 98 01/23/18 14:40 18 155/113 97 01/23/18 12:14 97.9 F 82 18 160/108 99 01/23/18 10:05 88 16 99 Intake and Output 01/23/18 01/24/18 01/24/18 23:59 07:59 15:59 Intake Total 1950 / 1950 1210 / 1210 Output Total 400 / 400 400 / 400 Balance 1550 / 1550 810 / 810 Intake: IV Fluids 1110 / 1110 1210 / 1210 KCl 40mEq in 0.9% Sodium 1000 / 1000 1000 / 1000 Chloride 40 meq In 1,000 ml @ 125 mls/hr IVC .Q8H VIVIANA Rx#: [id number] Calcium Gluconate 1,000 MG In 0 110 / 110 110 / 110 .9 % Sodium Chloride 100 ML @ 220 mls/hr IVPB Q6HR PRN Rx#: [id number] Potassium Chloride 10 mEq/100mL 100 / 100 10 meq In 100 ml @ 100 mls/hr IVPB Q1H PRN Rx#:[id number] Oral 840 / 840 0 / 0 Output: Urine 400 / 400 400 / 400 Other: Meal Dinner Percent of Meal Consumed 5% # Voids 1 Weight 78.139 kg Patient Weight 01/24/18 23:59 Weight 78.139 kg - General Appearance General appearance: Present: well-developed, well-nourished EENT: Present: ATNC, hearing intact, vision intact Neck: Present: supple Respiratory: Present: clear, wheezing Cardiology: Present: no edema, normal S1, normal S2 Gastrointestinal: Present: normoactive bowel sounds, no tenderness, no guarding Integumentary: Present: no rash, warm and dry Neurologic: Present: alert and oriented x3 Psychiatric: Present: mood/affect appropriate, cooperative - Lab 01/24/18 02:51 01/24/18 09:32 Most recent lab results Calcium 7.9 mg/dL (8.6-10.3) L 01/24/18 02:51 Phosphorus 1.5 mg/dL (2.7-4.5) L 01/24/18 02:51 Magnesium 2.0 mg/dL (1.6-2.6) 01/24/18 02:51 Consult Discharge Plan - Plan Referrals: Misa Westbrook, COMPUTING MACHINE OPERATOR [Primary Care Provider] - (This office is a walkin only clinic, unable to make any follow up appointment)
--- NOTE | 2018-01-24 10:37 | Internal Med Progress Note ---
Hospitalist Progress Note - Encounter Date of Encounter: 01/24/18 Time of Encounter: 10:00 - Subjective Interval History: No acute events overnight, overnight trend of electrolytes noted. Continue to require large amount of potassium to keep it near-normal. Continues to urinate well dysuria. Denies any fever/chills, nausea/vomiting, diarrhea. - Exam Vitals: Temp Pulse Resp BP Pulse Ox 98.2 F 79 17 150/115 100 01/24/18 06:46 01/24/18 06:46 01/24/18 06:46 01/24/18 06:46 01/24/18 06:46 Exam: General: Alert and oriented, not in acute distress. Cardiovascular:Normal S1 & S2, No JVD. Pulse regular. Lungs: clear to auscultation Abdomen:Soft, non-tender, no rigidity. No palpable bladder or CVA tenderness Extremities: LUE contracture noted. L ankle in plantarflexion. Neurological: no focal deficits other than the contracture described as above - Assessment and Plan (1) DIAZ (acute kidney injury) Current Visit: Yes Status: Resolved Assessment and Plan: likely pre-renal with poor oral intake and ongoing use of Lasix/HCTZ also complicated by recent use of bactrim for presumed UTI, no clear evidence of UTI on our urinalysis she was also taking an unknown abx about a month ago for bilateral LE cellulitis -> upon reviewing the picture of "redness" around her ankle, they almost resemble the vasculitic lesions. Currently free of lesions urine eosinophils and tox -ve repeat urinalysis was negative for UTI Improving with IVF, continue for now and d/c if she is able to take by mouth well hold off on lasix and HCTZ avoid nephrotoxins, anti-epileptic meds adjusted -> restart zonisamide follow with nephrology (2) Hypokalemia Current Visit: Yes Status: Acute Assessment and Plan: K 1.8 with ?U wave on EKG. Mg normal slowly improving with aggressive replacement and continues to require > 120meq/day, ?cause does not appear to be due to GI loss given her lack of symptoms continue electrolyte replacement protocol for now discussed with nephrology for their input regarding home dose of potassium for the patient to take, appreciate input telemetry (3) Hyponatremia Current Visit: Yes Status: Acute Assessment and Plan: likely hypovolemic, also may be attributed to SIADH with the use of Zoloft and Trileptal TSH normal Improved to her baseline, continue IVF until she is able to take by mouth well (4) Epilepsy Current Visit: Yes Status: Chronic Assessment and Plan: On Trileptal and Zonisamide at home Trileptal resumed at home dose yesterday given her recovery of DIAZ, will restart Zonisamide (5) Hypertension Current Visit: Yes Status: Chronic Assessment and Plan: on metoprolol and HCTZ at home, hold coreg started instead, uptitrate PRN IV labetalol (6) DVT prophylaxis Current Visit: Yes Status: Acute Assessment and Plan: SQ heparin - Time Spent with Patient Total time spent is greater than 50% in coordination of care (as documented) at patient's floor/unit and/or counseling patient: Plan of Care Discussed with: patient Internal Medicine: Result - Labs CBC & Chem 7: 01/24/18 02:51 01/24/18 09:32 Labs: Short CBC 01/24/18 Range/Units 02:51 WBC 6.5 (4.3-11.1) K/mcL Hgb 11.0 L D (11.5-15.4) g/dL Hct 30.0 L (35.3-44.9) % Plt Count 202 (140-400) K/mcL Neutrophils # 2.7 (1.6-8.9) K/mcL BMP 01/23/18 01/23/18 01/23/18 10:47 13:49 16:42 Sodium 129 L 129 L 130 L Potassium 2.8 L 2.8 L 3.2 L Chloride 98 97 L 98 Carbon Dioxide 24 25 24 BUN 24 H 23 H 22 H Creatinine 1.40 H 1.26 H 1.12 Glucose 147 H 119 H 112 H Calcium 8.2 L 8.0 L 7.9 L 01/23/18 01/24/18 01/24/18 20:15 02:51 09:32 Sodium 129 L Potassium 3.4 L 3.3 L 4.0 Chloride 102 Carbon Dioxide 23 BUN 16 Creatinine 0.83 Glucose 85 Calcium 7.9 L Liver Function 01/24/18 Range/Units 02:51 Albumin 3.1 L (3.5-5.7) g/dL Urine 01/23/18 Range/Units 22:45 Urine Color Yellow (Yellow) Urine Clarity Cloudy A (Clear) Urine pH 6.5 (5.0-8.0) pH Units Ur Specific [place] 1.015 (1.010-1.025) Urine Protein Negative (Neg-Trace) mg/dL Urine Glucose (UA) Normal (Normal) mg/dL Consult Discharge Plan - Plan Referrals: NONE,PCP [Primary Care Provider] - (4) Epilepsy Qualifiers: Epilepsy type: unspecified Intractability: not intractable Status epilepticus: without status epilepticus Qualified Code(s): G40.909 - Epilepsy, unspecified, not intractable, without status epilepticus (5) Hypertension Qualifiers: Hypertension type: essential hypertension Qualified Code(s): I10 - Essential (primary) hypertension
[2018-01-24 16:58] LABS: VBG Ionized Calcium 1.12 mmol/L (1.15-1.35)
[2018-01-24] MEDS: *HR* Labetalol 20 MG/4 ML SYRINGE IVP PRN (17:05)
[2018-01-25] MEDS: *HR* Labetalol 20 MG/4 ML SYRINGE IVP PRN ×2 (00:06→04:07)
[2018-01-25] MEDS: Acetaminophen 325 MG TABLET PO PRN ×2 (03:47→14:19)
[2018-01-25] MEDS: 0.9 % Sodium Chloride w KCl 40 MEQ/1,000 ML MLS IVC SCH ×2 (03:49→05:22)
[2018-01-25 04:47] LABS: Hematocrit 32.3 % (35.3-44.9); Hemoglobin 11.1 g/dL (11.5-15.4); Mean Corpuscular HGB Conc 34.4 g/dL (31.6-35.5); Mean Corpuscular Volume 93.1 fL (83.0-100.0); Mean Platelet Volume 10.1 fL (9.4-12.4); Platelet Count 200 K/mcL (140-400); Red Blood Count 3.47 M/mcL (3.82-4.97); Red Cell Distribution Width 12.1 % (11.5-14.5)
[2018-01-25 04:50] LABS: VBG Ionized Calcium 1.09 mmol/L (1.15-1.35)
[2018-01-25 05:05] LABS: BUN/Creatinine Ratio 16 (6-26); Blood Urea Nitrogen 10 mg/dL (6-20); Calcium 8.4 mg/dL (8.6-10.3); Carbon Dioxide 19 mEq/L (23-29); Chloride 110 mEq/L (98-107); Glucose 102 mg/dL (70-105); Magnesium 1.9 mg/dL (1.6-2.6); Osmolality,Calculated 275 (280-300); Phosphorous 2.5 mg/dL (2.7-4.5); Potassium 4.4 mEq/L (3.5-5.1); Sodium 133 mEq/L (136-145); eGFR For Non-African Americans > 60 (> 60)
[2018-01-25] MEDS: *HR* Heparin 5,000 UNIT/ML VIAL SQ SCH ×2 (06:27→16:51)
[2018-01-25] MEDS: Cholecalciferol (D-3) 1,000 UNIT TABLET PO SCH (08:24)
[2018-01-25] MEDS: OXcarbazepine 150 MG TABLET PO SCH ×2 (08:25→20:28)
--- NOTE | 2018-01-25 09:20 | Internal Med Progress Note ---
Hospitalist Progress Note - Encounter Date of Encounter: 01/25/18 Time of Encounter: 09:20 - Subjective Interval History: 37 year old female with PMHx of cerebral palsy, epilepsy, HTN She was admitted and managed for DIAZ in the setting of Lasix/HCTZ/Bactrim/NSAIDs use associated with hypokalemia 1.8 and hyponatremia 123. She was seen and examined at the bedside with her mother and partner (on skype) She has no ew complains Blood pressure remains uncontrolled, although the patient attributed this to inability to sleep Electrolytes are well replaced Plan is to d/c IV repalcement and continue with po replacement, repeat Chem p. and add Norvasc to blood pressure regimen She may be transferred out of SDU and may likely discharge a.m Plan of care discussed with patient and her mother, who verbalized understanding - Exam Vitals: Temp Pulse Resp BP Pulse Ox 98.2 F 88 18 183/122 100 01/25/18 08:22 01/25/18 08:22 01/25/18 08:22 01/25/18 08:22 01/25/18 08:22 Exam: General: Alert and oriented, not in acute distress. Cardiovascular:Normal S1 & S2, No JVD. Pulse regular. Lungs: clear to auscultation Abdomen:Soft, non-tender, no rigidity. No palpable bladder or CVA tenderness Extremities: LUE contracture noted. L ankle in plantarflexion. Neurological: no focal deficits other than the contracture described as above - Assessment and Plan (1) Hypokalemia Current Visit: Yes Status: Resolved Assessment and Plan: Resolved Likley due to use of lasix/HCTZ K this a. 4.4 Discontinue IV replacements Continue po 40mg BID However, rpt chem 1600, will adjust po repalcement depending on results Continue to monitor. (2) Hyponatremia Current Visit: Yes Status: Resolved Assessment and Plan: likely hypovolemic, also may be attributed to SIADH with the use of Zoloft and Trileptal TSH normal Improved to her baseline Discontinue IV fluids Continue to monitor (3) DIAZ (acute kidney injury) Current Visit: Yes Status: Resolved Assessment and Plan: Resolved Multifactorial: Pre-renal from poor oralintake, intrinsic due to medications viz: Lasix/HCTZ/bactrim urine eosinophils and tox -ve repeat urinalysis was negative for UTI Nephrology input appreciated Continue to monitor (4) Epilepsy Current Visit: Yes Status: Chronic Assessment and Plan: On Trileptal and Zonisamide at home Continue home meds (5) DVT prophylaxis Current Visit: Yes Status: Acute Assessment and Plan: SQ heparin (6) Hypertension Current Visit: Yes Status: Chronic Assessment and Plan: Continue Coreg Remains uncontrolled Add Norvasc May consider diuretic if remains uncontrolled Continue to monitor DVT Prophylaxis: SQ heparin - Time Spent with Patient Total time spent is greater than 50% in coordination of care (as documented) at patient's floor/unit and/or counseling patient: Plan of Care Discussed with: patient Internal Medicine: Result - Labs CBC & Chem 7: 01/25/18 04:25 01/25/18 04:25 Labs: Short CBC 01/25/18 Range/Units 04:25 WBC 9.4 (4.3-11.1) K/mcL Hgb 11.1 L (11.5-15.4) g/dL Hct 32.3 L (35.3-44.9) % Plt Count 200 (140-400) K/mcL BMP 01/24/18 01/25/18 09:32 04:25 Sodium 133 L Potassium 4.0 4.4 Chloride 110 H Carbon Dioxide 19 L BUN 10 Creatinine 0.64 Glucose 102 Calcium 8.4 L - Impressions Impressions Retroperitoneum Ultrasound 01/24/18 18:00 IMPRESSION: Unremarkable ultrasound of the kidneys and urinary bladder. D/ / 01/24/2018 20:34:00 Clarence Carrillo MD / michael Interpreting Provider: Clarence Carrillo MD Consult Discharge Plan - Plan Referrals: Misa Westbrook, SALES OFFICE ASSISTANT [Primary Care Provider] - (This office is a walkin only clinic, unable to make any follow up appointment) (4) Epilepsy Qualifiers: Epilepsy type: unspecified Intractability: not intractable Status epilepticus: without status epilepticus Qualified Code(s): G40.909 - Epilepsy, unspecified, not intractable, without status epilepticus (6) Hypertension Qualifiers: Hypertension type: essential hypertension Qualified Code(s): I10 - Essential (primary) hypertension
[2018-01-25] MEDS: amLODIPine 5 MG TABLET PO SCH (09:58)
--- NOTE | 2018-01-25 10:41 | Nephrology Progress Note ---
Addendum entered and electronically signed by Neel Bundy MD 01/25/18 18:14: I examined this patient and discussed the medical decision-making with JAGJIT Romero. I agree with the documented findings, disposition and treatment plan as described except to the extent set forth below. Patient blood pressure remains uncontrolled. Losartan was added and will be titrated aggressively to gain control of her blood pressure. Original Note: Date of Encounter: 01/25/18 Time of Encounter: 10:38 - Assessment and Plan (1) DIAZ (acute kidney injury) Current Visit: Yes Status: Resolved DIAZ resolving nicely. Scr is 0.64 and GFR is greater than 60. Continue to avoid nephrotoxins and renal dose. F/U with Dr. Bundy in 6-8 weeks, BMP 7 days prior to appointment. (2) Hypokalemia Current Visit: Yes Status: Resolved K is 4.4, resolved. (3) Hyponatremia Current Visit: Yes Status: Resolved Na is 133, resolved. (4) Hypertension Current Visit: Yes Status: Chronic BP still elevated 170/102. Losartan 50 mg daily added. Qualifiers: Hypertension type: essential hypertension Qualified Code(s): I10 - Essential (primary) hypertension Subjective Principal diagnosis: abnormal renal function Objective - Vital Signs Vital signs: Vital Signs Temp Pulse Resp BP Pulse Ox 01/25/18 09:53 170/102 01/25/18 08:22 98.2 F 88 18 183/122 100 01/25/18 04:55 171/100 01/25/18 03:40 97.6 F 73 18 180/121 100 01/25/18 00:40 170/94 01/24/18 23:46 98.4 F 82 18 166/115 98 01/24/18 19:26 97.6 F 81 20 152/99 100 01/24/18 16:58 97.8 F 89 19 171/114 01/24/18 11:25 97.7 F 71 18 156/107 100 Intake and Output 01/24/18 01/25/18 01/25/18 23:59 07:59 15:59 Intake Total 1000 / 1000 Output Total 200 / 200 Balance 800 / 800 Intake: IV Fluids 1000 / 1000 KCl 40mEq in 0.9% Sodium 1000 / 1000 Chloride 40 meq In 1,000 ml @ 125 mls/hr IVC .Q8H VIVIANA Rx#: [id number] Output: Urine 200 / 200 Other: Meal Dinner Percent of Meal Consumed 50% Stool Size Small Stool Consistency loose Stool Color Brown # Voids 1 # Bowel Movements 1 Weight 78.2 kg Patient Weight 01/25/18 23:59 Weight 78.2 kg - General Appearance General appearance: Present: well-developed, well-nourished EENT: Present: ATNC, hearing intact, vision intact Neck: Present: supple Respiratory: Present: clear Cardiology: Present: no edema, normal S1, normal S2 Gastrointestinal: Present: normoactive bowel sounds, no tenderness, no guarding Integumentary: Present: no rash, warm and dry Neurologic: Present: alert and oriented x3 Psychiatric: Present: mood/affect appropriate, cooperative - Lab 01/25/18 04:25 01/25/18 04:25 Most recent lab results Calcium 8.4 mg/dL (8.6-10.3) L 01/25/18 04:25 Phosphorus 2.5 mg/dL (2.7-4.5) L 01/25/18 04:25 Magnesium 1.9 mg/dL (1.6-2.6) 01/25/18 04:25 Consult Discharge Plan - Plan Referrals: Misa Westbrook, ELECTRONICS TECHNICIAN APPRENTICE [Primary Care Provider] - (This office is a walkin only clinic, unable to make any follow up appointment)
[2018-01-25 12:16] LABS: VBG Ionized Calcium 1.14 mmol/L (1.15-1.35)
[2018-01-25 12:27] LABS: Magnesium 2.4 mg/dL (1.6-2.6); Phosphorous 2.5 mg/dL (2.7-4.5)
[2018-01-25] MEDS ORDERED: *HR* Labetalol 20 MG/4 ML SYRINGE IVP PRN (13:53)
[2018-01-25] MEDS ORDERED: *HR* Labetalol 20 MG/4 ML SYRINGE IVP ONE (13:53)
[2018-01-25 16:51] LABS: BUN/Creatinine Ratio 12 (6-26); Blood Urea Nitrogen 7 mg/dL (6-20); Calcium 8.5 mg/dL (8.6-10.3); Carbon Dioxide 22 mEq/L (23-29); Chloride 107 mEq/L (98-107); Glucose 124 mg/dL (70-105); Osmolality,Calculated 275 (280-300); Sodium 133 mEq/L (136-145); eGFR For Non-African Americans > 60 (> 60)
[2018-01-26 04:28] LABS: BUN/Creatinine Ratio 12 (6-26); Blood Urea Nitrogen 8 mg/dL (6-20); Calcium 8.3 mg/dL (8.6-10.3); Carbon Dioxide 22 mEq/L (23-29); Chloride 108 mEq/L (98-107); Glucose 86 mg/dL (70-105); Osmolality,Calculated 280 (280-300); Potassium 3.9 mEq/L (3.5-5.1); Sodium 136 mEq/L (136-145); eGFR For Non-African Americans > 60 (> 60)
[2018-01-26] MEDS: *HR* Heparin 5,000 UNIT/ML VIAL SQ SCH (06:06)
[2018-01-26] MEDS: OXcarbazepine 150 MG TABLET PO SCH (07:58)
[2018-01-26] MEDS: Cholecalciferol (D-3) 1,000 UNIT TABLET PO SCH (07:59)
[2018-01-26] MEDS: amLODIPine 5 MG TABLET PO SCH (08:00)
[2018-01-26 09:21] VITALS: BP 119/72
--- NOTE | 2018-01-26 11:01 | Discharge Summary ---
- NOTES TO OUTPATIENT PROVIDER Notes to Outpatient Provider: Follow up in the residency clinic here at [facility]. She was admitted for hypokalemia, hyponatremia and DIAZ in the setting of diuretic and bactrim use and poor oral intake. She has returned to baseline and DIAZ and Hypokalemia/hypophisphatemia and hyponatremia resolved. Home blood pressure medications have been adjusted disease: Coreg, Norvasc and losartan has been started, hydrochlorothiazide, Lasix and metoprolol have been discontinued. She is recommended to have her blood draw within the next 1-2 weeks and follow up with primary care physician. She verbalized understanding of plan of care. She was discharged home in stable clinical condition. Orders not resulted at time of discharge: Pending orders 01/23/18 12:50 RICHARD Titer by IFA Routine Complement Component 3 Routine Complement Component 4 Routine MPO/PR3 (ANCA) Antibodies Routine Date of Encounter: 01/26/18 Time of Encounter: 11:00 - Discharge Diagnosis (1) Hypokalemia Priority: Primary Status: Resolved (2) Hyponatremia Priority: Primary Status: Resolved (3) DIAZ (acute kidney injury) Priority: Primary Status: Resolved (4) Epilepsy Priority: Secondary Status: Chronic Qualifiers: Epilepsy type: unspecified Intractability: not intractable Status epilepticus: without status epilepticus Qualified Code(s): G40.909 - Epilepsy, unspecified, not intractable, without status epilepticus (5) DVT prophylaxis Priority: Primary Status: Resolved (6) Hypertension Priority: Secondary Status: Chronic Qualifiers: Hypertension type: essential hypertension Qualified Code(s): I10 - Essential (primary) hypertension Hospital course: Ms. White is a 37 year old female 37 year old female with PMHx of cerebral palsy, epilepsy, HTN She was admitted and managed for DIAZ in the setting of Lasix/HCTZ/Bactrim/NSAIDs use associated with hypokalemia 1.8 and hyponatremia 123. Workup including chest x-ray, complete blood count, renal ultrasound, hepatitis panel, urine analysis, urine eosinophils and toxicology were negative. Her home medications for epilepsy has since been resumed and patient tolerated appropriately. She has returned to baseline and DIAZ and Hypokalemia/hypophisphatemia and hyponatremia resolved. Home blood pressure medications have been adjusted disease: Coreg, Norvasc and losartan has been started, hydrochlorothiazide, Lasix and metoprolol have been discontinued. She is recommended to have her blood draw within the next 1-2 weeks and follow up with primary care physician. She verbalized understanding of plan of care. She was discharged home in stable clinical condition. Discharge discussed with: patient, family, nurse - Time Spent with Patient Total time spent providing and/or coordinating discharge services: Less than 30 minutes - Discharge Medications Prescriptions: amLODIPine [Norvasc] 5 mg PO DAILY #30 tablet Carvedilol [Coreg] 25 mg PO BIDWM #60 tablet Losartan [Cozaar] 100 mg PO DAILY #90 tablet Home Medications: Cholecalciferol (D-3) [Vitamin D] 5,000 unit PO DAILY tablet 08/05/15 [Rx] OXcarbazepine [Trileptal] 600 mg PO BID tablet 08/05/15 [Rx] Zonisamide [Zonegran] 100 mg PO BID capsule 08/05/15 [Rx] Mv,Fe,Min/Lutein [A Thru Z [employer]'s Tablet] 1 tab PO DAILY 01/22/18 [History] Potassium Chloride [K-Tab ER] 20 meq PO DAILY 01/22/18 [History] Sertraline [Zoloft] 50 mg PO DAILY 01/22/18 [History] hydrOXYzine HCl [Hydroxyzine HCl] 25 - 50 mg PO HS 01/22/18 [History] Carvedilol [Coreg] 25 mg PO BIDWM #60 tablet 01/26/18 [Rx] Losartan [Cozaar] 100 mg PO DAILY #90 tablet 01/26/18 [Rx] amLODIPine [Norvasc] 5 mg PO DAILY #30 tablet 01/26/18 [Rx] Allergies/Adverse Reactions: Allergy/AdvReac Type Severity Reaction Status Date / Time No Known Allergies Allergy Verified 01/22/18 12:44 Date of admission: 01/22/18 15:43 Primary care physician: Misa Westbrook CNP Consults: 01/22/18 14:35 Consult to Nephrology [CONS] Stat Consulting Provider: Kidney Becca/WINSTON/CHANG/RODOLFO Reason for Consult: diaz, electrolyte abnormality Call Completed: Yes 01/22/18 21:52 Consult to Nutrition [CONS] Routine Comment: Consulting Provider: NUTRITION Reason for Dietary Consult: MST Score Discharging clinician: Wallace Pierre Anticipated date of discharge: 01/26/18 - Constitutional Vitals: Temp Pulse Resp BP Pulse Ox 97.6 F 81 18 119/72 99 01/26/18 07:32 01/26/18 09:18 01/26/18 09:18 01/26/18 09:18 01/26/18 07:32 Exam: General: Alert and oriented, not in acute distress. Cardiovascular:Normal S1 & S2, No JVD. Pulse regular. Lungs: clear to auscultation Abdomen:Soft, non-tender, no rigidity. No palpable bladder or CVA tenderness Extremities: LUE contracture noted. L ankle in plantarflexion. Neurological: no focal deficits other than the contracture described as above - Patient Status Disposition: Home, Self-Care Condition: Good Functional capacity at discharge: independent ambulation Overall status at discharge: patient is back to baseline - Discharge Instructions Instructions: Chronic Hypertension (DC) Follow Up With: David Sarmiento DO [Resident] - 02/08/18 2:00 pm Misa Westbrook CNP [Primary Care Provider] - (This office is a walkin only clinic, unable to make any follow up appointment) Neel Bundy MD [Partnered Physician] - (6-8 wks with BMP 7 days prior ) - Diet and Activity Activity: resume usual activities as tolerated Diet: low salt diet
[2018-01-27 08:12] LABS: Complement Component 3 79 mg/dL (88-201); Complement Component 4 24 mg/dL (10-40)
[2018-01-27 08:20] LABS: Myeloperoxidase Ab 0 AU/mL (0-19); Serine Protease-3 Antibody 0 AU/mL (0-19)
--- NOTE | 2018-01-28 18:13 | Electrocardiograph Report ---
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
--- NOTE | 2018-01-28 18:15 | Electrocardiograph Report ---
[place] [id number] Test Date: 2018-01-22 Pat Name: Sarai White Department: EXAM5 Room: 3B49 Gender: F Psychology Tech: : 1980 Requested By: Price Osborne Order Number: [id number] Reading MD: Raj Hurt Measurements Intervals [place] Rate: 74 P: 61 AL: 188 QRS: 22 QRSD: 93 T: 173 QT: 464 QTc: 515 Interpretive Statements Sinus rhythm Possible biatrial enlargement Left ventricular hypertrophy with secondary ST-T changes Prolonged QT interval Electronically Signed On 01-28-2018 18:14:10 EDT by Raj Hurt
== END 2018-01-26 12:57 | disposition home or self-care (01) | DRG 469 ==
LOC: EMEROOARM 12:26 → 2ANU 15:43 → SUATTDRO 15:43 → 2NNU 16:40 → 3BNU 01-26 10:09
PROVIDERS: ADMIT Internal Medicine Nephrology; ATTEND Internal Medicine